=== PATIENT | male | born 1980 | race Caucasian/White ===

== ENCOUNTER → 2017-05-07 | Outpatient (CLI) | payer BC ==
--- NOTE | 2017-05-07 19:34 | REP ---
Left foot four views: I suspect soft tissue edema laterally. This should be confirmed clinically. There is no fracture or dislocation. Mineralization is normal. The mortise is symmetric. There are calcaneal plantar and Achilles spurs. Signed by Kirk Hi MD 05/07/2017 07:25 P
== END ==
LOC: M WUC 18:18
PROVIDERS: ATTEND Physician Assistant
DX: M25.572 Pain in left ankle and joints of left foot (principal); M77.32 Calcaneal spur, left foot

== ENCOUNTER → 2019-02-22 | Outpatient (REF) | payer BC | LOC: M LAB REF 12:00 | PROVIDERS: ATTEND Nurse Practitioner Family | DX: L02.31 Cutaneous abscess of buttock (principal) ==

== ENCOUNTER → 2019-09-11 | Outpatient (CLI) | payer BC ==
--- NOTE | 2019-09-11 13:35 | REP ---
INDICATION: Neck pain. PROCEDURE: Two-view plain radiographs of the cervical spine were performed. COMPARISON STUDIES: None. FINDINGS: There is slight reversal of the cervical lordosis. There is no evidence of fracture or subluxation. Multilevel spondylosis is present. The paraspinal soft tissues are unremarkable. CONCLUSION: No evidence of cervical spine fracture or additional acute pathology. Electronically Signed by Devin Elizabeth DO 09/11/2019 01:27 P
--- NOTE | 2019-09-12 05:50 | REP ---
Clinical: Left shoulder pain . Technique: Internal rotation, external rotation, and Y view left shoulder . Findings: Mild degenerative changes include very subtle irregularity and spurring at the acromioclavicular joint as well as small spurring along the inferior margin of the glenohumeral joint. No acute fracture or dislocation. No periarticular calcifications or loose bodies identified. Sub acromial space is normal. Surrounding soft tissues are unremarkable. Impression: Very minimal age-related degenerative changes Electronically Signed by Kade Deshpande MD 09/12/2019 05:41 A
== END ==
LOC: M WUC 11:17
PROVIDERS: ATTEND Nurse Practitioner Family
DX: M79.622 Pain in left upper arm (principal); M54.9 Dorsalgia, unspecified

== ENCOUNTER → 2021-08-26 | Outpatient (CLI) | payer BC ==
--- NOTE | 2021-08-26 12:59 | REP ---
INDICATION: PAIN. COMPARISON: Comparison left foot radiographs are from January 09, 2011. TECHNIQUE: Four views of the left foot are provided. FINDINGS: Four views of the left foot demonstrate overall normal mineralization. There is mild osteoarthritic spurring at the 1st MTP and 1st MT T articulations. There is prominent Achilles and plantar calcaneal spurring. There is tibiotalar spurring at the ankle. No erosive change or bony destructive lesion is seen. No opaque foreign body noted. No fracture is seen. IMPRESSION: Osteoarthritic changes and heel spurs. No acute bony abnormality. <Electronically signed by Kaleb Reyes > 08/26/21 [id number]
--- NOTE | 2021-08-26 13:03 | REP ---
INDICATION: PAIN. COMPARISON: None. TECHNIQUE: Five views of the left knee. FINDINGS: Five views of the left knee demonstrate large non articular spurs in the superior pole and inferior pole of the patella. The inferior pole patellar spur appears to be fragmented. These are at the quadriceps and patellar tendon insertion sites respectively. There is also fullness in the suprapatellar bursa consistent with a joint effusion. Tibiotalar joint spaces are preserved. No erosive changes seen. No fracture or subluxation is seen. No opaque foreign body noted. IMPRESSION: Moderate-sized joint effusion. Large tendon insertion sites spurs on the patella inferior pole and superior pole. These findings are consistent with chronic patellar and quadriceps tendinitis. <Electronically signed by Kaleb Reyes > 08/26/21 1300
== END ==
LOC: M WUC 08:56
PROVIDERS: ATTEND Physician Assistant
DX: M25.562 Pain in left knee (principal); M79.672 Pain in left foot; M77.32 Calcaneal spur, left foot; M19.072 Primary osteoarthritis, left ankle and foot; M25.462 Effusion, left knee